=== PATIENT | male | born 1960 | race Caucasian/White ===

== ENCOUNTER 2020-02-19 14:03 | Observation (INO) ==
[2020-02-19] MEDS ORDERED: EPINEPHrine INJ 1 MG/ML AMP ONE (14:05)
[2020-02-19] MEDS ORDERED: EPINEPHRINE ADULT AUTO-INJECT 0.3 MG SYR IM ONE (14:05)
--- OUTSIDE RECORDS SUMMARY | 2020-02-19 14:07 | External Medical Summary | Continuity of Care Document ---
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 Krista Lyon Quantity: 1 Refills: 3 Simvastatin 10 MG Oral Tablet; [facility] Krista Franks Start: 21-Sep-2014 Refills: 0 Procedures Procedures not documented Immunizations Immunizations not documented Family History Mother Family history of Diabetes Mellitus (V18.0) Status: Active Father Family history of Parkinson Disease Status: Active Social History - Smoking Status Ex-smoker Plan of Treatment Planned Observations Planned Goals not documented Results No Known Results Results not documented
[2020-02-19] MEDS ORDERED: FAMOTIDINE 20MG/5ML IV PUSH IV ONE (14:12)
[2020-02-19] MEDS ORDERED: SODIUM CHLORIDE 0.9% 1000ML 1,000 ML IV ONE (14:13)
[2020-02-19] MEDS ORDERED: FAMOTIDINE 20MG IV PUSH 20 MG/5 ML SYR IV ONE (14:15)
[2020-02-19 14:27] LABS: iSTAT Creatinine 1.1 mg/dl (0.6-1.3); iSTAT Ionized Calcium 1.13 mmol/l (1.12-1.32); iSTAT Potassium 3.6 mmol/L (3.3-5.0)
--- NOTE | 2020-02-19 14:33 | XRay Report ---
XR chest 1V portable HISTORY: 59 years-old Male Chest Pain acute atypical chest pain COMPARISON: Chest radiograph 03/14/2007 TECHNIQUE: Portable AP view of the chest FINDINGS: Cardiomegaly. Mild right hemidiaphragmatic elevation. Ill-defined opacity of the left midlung is like ly secondary to summation density. No pneumothorax, pleural effusion, overt pulmonary edema or defini te airspace consolidation. Bones appear grossly intact. IMPRESSION: 1. Cardiomegaly. 2. Ill-defined left midlung opacity is likely secondary to summation density. This could be correlate d with PA and lateral views of the chest. ACT 112: Negative or not required by law. The above report was generated using voice recognition software. It may contain grammatical, syntax o r spelling errors. Electronically signed by: Robert Colindres M.D. 02/19/2020 2:31 PM
--- NOTE | 2020-02-19 14:39 | CT Scan Report ---
CT head/brain wo con CLINICAL HISTORY: 59 years-old Male with altered loc. Acutely altered mental status TECHNIQUE: Multiple axial CT images of the head were obtained without contrast. A dose lowering tech nique was utilized adhering to the principles of ALARA. COMPARISON: CT soft tissue neck of same day. FINDINGS: The study is mildly motion degraded. No acute intracranial hemorrhage, midline shift, intracranial ma ss, hydrocephalus, territorial ischemia or abnormal extra-axial collection. The calvarium is intact. The paranasal sinuses, mastoid air cells, and middle ear cavities are clear . IMPRESSION: No acute intracranial abnormality. ACT 112: Negative or not required by law. The above report was generated using voice recognition software. It may contain grammatical, syntax o r spelling errors. Electronically signed by: Robert Colindres M.D. 02/19/2020 2:38 PM
[2020-02-19 14:40] LABS: Hematocrit (blood only) 46.4 % (42-52); Hemoglobin 16.3 g/dL (14.0-18.0); Mean Corpuscular Hemoglobin 31.3 pg (25-34); Mean Corpuscular Hgb Conc 35.1 g/dL (32-36); Mean Corpuscular Volume 89.1 fL (80-100); Mean Platelet Volume 11.2 fL (7.4-10.4); Platelet Count 237 K/uL (130-400); RDW Coefficient of Variation 13.3 % (11.5-14.5); RDW Standard Deviation 43.2 fL (36.4-46.3); Red Blood Count 5.21 M/uL (4.7-6.1); White Blood Count 10.98 K/uL (4.8-10.8)
--- NOTE | 2020-02-19 14:46 | CT Scan Report ---
CT soft tissue neck wo con HISTORY: 59 years-old Male eval for airway compromise acutely altered mental status with possible na rrowing of the airway. COMPARISON: CT head of same day, ultrasound guided thyroid biopsy 09/28/2013 TECHNIQUE: Multiple axial CT images of the soft tissues of the neck were obtained without the use of IV contrast. A dose lowering technique was used consistent with the principals of LISA. FINDINGS: Study is mildly motion degraded. Limited exam without the use of IV contrast. No acute process of the imaged intracranial structures. The orbits are unremarkable. Streak artifact from dental amalgam sandi dware limits evaluation of the adjacent tissues. Calcifications of the bilateral palatine tonsils whi ch are symmetrically mildly enlarged. This results in mild narrowing of the oral pharyngeal airway. N o prevertebral soft tissue swelling or parapharyngeal fluid collection. Mild prominence of the lingua l tonsils. The glottis and subglottic airway appears unremarkable. Enlarged multinodular goiter. Calc ifications of the left thyroid lobe. There is mild narrowing of the airway at the level of the thyroi d. Parotid and submandibular glands are unremarkable. 4 mm right parotid calcification, image 168 ser ies 3 may be a calcification within the duct. No adenopathy. Lung apices are clear without pneumothor ax. Multilevel degenerative changes of the cervical spine. No acute fracture identified. Mild polypoid mu cosal thickening of the left maxillary sinus. Mastoid air cells are clear. IMPRESSION: 1. Mildly motion degraded exam. 2. Symmetric prominence of the bilateral palatine tonsils results in mild narrowing of the oral phary nx. 3. Multinodular goiter. 4. No adenopathy. ACT 112: Negative or not required by law. The above report was generated using voice recognition software. It may contain grammatical, syntax o r spelling errors. Electronically signed by: Robert Colindres M.D. 02/19/2020 2:45 PM
[2020-02-19 14:47] LABS: Alanine Aminotransferase 53 U/L (12-78); Albumin Level 4.2 gm/dl (3.4-5.0); Aspartate Aminotransferase 21 U/L (15-37); BUN Creatinine Ratio 12.8 (10-20); Blood Urea Nitrogen 13 mg/dl (7-18); Carbon Dioxide 25 mmol/L (21-32); Chloride 110 mmol/L (98-107); Creatinine Clr Calc Pharmacy 99.6 ml/min; Est GFR (Non-African American) 80.3; Glucose 112 mg/dl (70-99); Lipase 175 U/L (73-393); Potassium 3.5 mmol/L (3.5-5.1); Sodium 145 mmol/L (136-145)
[2020-02-19 14:52] LABS: Alkaline Phosphatase 92 U/L (45-117); Bilirubin,Total 0.4 mg/dl (0.2-1); Globulin 4.1 gm/dl (2.5-4.0); Partial Thromboplastin Ratio 0.9; Partial Thromboplastin Time 26.5 Seconds (21.0-31.0); Prothrombin Time 10.4 Seconds (9.0-12.0); Total Protein 8.3 gm/dl (6.4-8.2); Troponin I < 0.015 ng/ml (0-0.045)
[2020-02-19 15:27] LABS: Basophils # (auto) 0.06 K/uL (0-0.2); Basophils % (auto) 0.5 %; Eosinophils # (auto) 0.35 K/uL (0-0.5); Eosinophils % (auto) 3.2 %; Immature Granulocytes # (auto) 0.04 K/uL (0.00-0.02); Immature Granulocytes % (auto) 0.4 %; Lymphocytes # (auto) 5.25 K/uL (1.2-3.4); Lymphocytes % (auto) 47.8 %; Monocytes # (auto) 0.52 K/uL (0.11-0.59); Monocytes % (auto) 4.7 %; Neutrophils # (auto) 4.76 K/uL (1.4-6.5); Neutrophils % (auto) 43.4 %
--- NOTE | 2020-02-19 15:51 | Emergency Department Note ---
History of Present Illness General Chief complaint: Allergic Reaction Source: patient, family () and EMS Mode of arrival: EMS Limitations: altered mental status History of Present Illness Maximum Pain Intensity: 0 This patient comes in after apparently eating stung on the hand with a bee about 40 minutes prior to calling EMS. He initially did okay and went to continue work outside. The neighbor came and got the and said that he was not doing well he was shaky and acting in and out of it with minimal responsiveness. They called 911. His said he did not have any hives or facial swelling. EMS a rrived and they did give him IM epinephrine as well as IV Benadryl and IV steroids. Upon arrival the patient is somewhat confused he does answer some questions appropriately but slowly he has no focal deficits. He is unable to give any further history initially but say he did drink a bloody Zee for breakfast. Denies chest pain but has had some shortness of breath. No fall or trauma. No hives or rash. Home Medications Home Medications Medication Instructions Recorded Confirmed Type rosuvastatin 10 mg PO HS 02/19/20 02/19/20 History sildenafil 100 mg PO UD 02/19/20 02/19/20 History Allergies Allergy/AdvReac Type Severity Reaction Status Date / Time bee venom protein (honey bee) AdvReac Severe Anaphylaxis Unverified 02/19/20 14:33 Past Med/Surg History Social History Preferred Language: Mongolian Communication Ability: Effective Building Certifier Required: No Beliefs That Will Affect Care: None Current Living Situation: Spouse Other Information That Helps Us Care for You: No Feels Safe at Home: Yes Safety Concerns: Feels Safe At This Time Smoking Status: Never smoker Hx Alcohol Use: Yes Alcohol type: beer and hard liquor Hx Substance Use: No Immunizations: Past medical history: He has a history of bee allergies and was desensitized according to the . He does not carry an EpiPen No cardiac history or diabetes Social history: He drinks socially but not heavily according to his . He is employed. Review of Systems Unobtainable due to cognitive status (Initially unable to give due to current mental confusion but when he came around he denied further complaints and a total of 10 systems were reviewed and otherwise negative) Physical Exam Vital Signs Vital Signs - 24 hr 02/19/20 14:04 02/19/20 14:12 02/19/20 14:14 Temperature 36.7 C Temperature Source Oral Pulse Rate 103 H 104 H Pulse Rate [Apical] Pulse Rate from SpO2 Sensor 103 H Respiratory Rate 24 Blood Pressure 212/117 H 131/106 H Blood Pressure [Left Arm] Blood Pressure Mean 148 108 Blood Pressure Mean [Left Arm] Blood Pressure Position Sitting Pulse Oximetry 94 97 97 Oxygen Delivery Method Room Air Nasal Cannula Nasal Cannula Oxygen Flow Rate 2 2 Sepsis Recent Fever Within 48 Hours No Sepsis Action Taken by Nursing No Action Required 02/19/20 14:16 02/19/20 14:18 02/19/20 14:40 Temperature Temperature Source Pulse Rate 99 H 91 H Pulse Rate [Apical] Pulse Rate from SpO2 Sensor 99 H 89 Respiratory Rate 20 Blood Pressure 137/88 170/90 H Blood Pressure [Left Arm] Blood Pressure Mean 96 99 Blood Pressure Mean [Left Arm] Blood Pressure Position Pulse Oximetry 96 95 96 Oxygen Delivery Method Nasal Cannula Nasal Cannula Nasal Cannula Oxygen Flow Rate 2 2 2 Sepsis Recent Fever Within 48 Hours Sepsis Action Taken by Nursing 02/19/20 14:45 02/19/20 14:55 02/19/20 14:56 Temperature Temperature Source Pulse Rate 94 H 95 H Pulse Rate [Apical] Pulse Rate from SpO2 Sensor 95 H Respiratory Rate 22 21 Blood Pressure 151/84 H 149/94 H Blood Pressure [Left Arm] Blood Pressure Mean 101 122 Blood Pressure Mean [Left Arm] Blood Pressure Position Pulse Oximetry 94 93 94 Oxygen Delivery Method Room Air Room Air Oxygen Flow Rate Sepsis Recent Fever Within 48 Hours Sepsis Action Taken by Nursing 02/19/20 15:00 02/19/20 15:15 02/19/20 15:30 Temperature Temperature Source Pulse Rate 93 H 94 H 94 H Pulse Rate [Apical] Pulse Rate from SpO2 Sensor 94 H 94 H 94 H Respiratory Rate 18 19 17 Blood Pressure 142/94 H 140/90 137/81 Blood Pressure [Left Arm] Blood Pressure Mean 106 101 89 Blood Pressure Mean [Left Arm] Blood Pressure Position Pulse Oximetry 92 95 95 Oxygen Delivery Method Oxygen Flow Rate Sepsis Recent Fever Within 48 Hours Sepsis Action Taken by Nursing 02/19/20 15:45 02/19/20 16:00 02/19/20 16:15 Temperature Temperature Source Pulse Rate 95 H 95 H 95 H Pulse Rate [Apical] Pulse Rate from SpO2 Sensor 90 95 H 96 H Respiratory Rate 16 17 18 Blood Pressure 123/75 133/88 134/80 Blood Pressure [Left Arm] Blood Pressure Mean 84 99 96 Blood Pressure Mean [Left Arm] Blood Pressure Position Pulse Oximetry 94 94 95 Oxygen Delivery Method Oxygen Flow Rate Sepsis Recent Fever Within 48 Hours Sepsis Action Taken by Nursing 02/19/20 17:03 02/19/20 18:35 Temperature Temperature Source Pulse Rate Pulse Rate [Apical] 93 H 103 H Pulse Rate from SpO2 Sensor Respiratory Rate 18 18 Blood Pressure Blood Pressure [Left Arm] 140/86 135/85 Blood Pressure Mean Blood Pressure Mean [Left Arm] 104 101 Blood Pressure Position Pulse Oximetry 94 95 Oxygen Delivery Method Room Air Room Air Oxygen Flow Rate Sepsis Recent Fever Within 48 Hours Sepsis Action Taken by Nursing General: Well developed well nourished middle-age male who appears confused to answer some questions appropriately but slowly but in no acute distress, breathing comfortably on room air. Normal speech HEENT: Normal cephalic atraumatic. Pupils are equal round and reactive to light. Extraocular movements are intact. Oropharynx is pink with moist mucous membranes. No swelling of the mouth lips or tongue. The posterior oropharynx has maybe some's mild swelling of the uvula but primary looks very open Neck: Supple with a midline trachea. No meningeal signs or stiffness, no JVD or bruits. No Stridor. Chest: Clear to auscultation bilaterally. No wheezes or rhonchi. No increased work of breathing. Heart: Regular rate and rhythm without murmurs or gallops. Abdomen: Soft nontender, nondistended without rebound guarding or rigidity. Extremities: No cyanosis clubbing or edema. No calf tenderness or assymetry Spine/Back. Non tender to palpation. No CVA tenderness Skin: Good turgor without rashes. Neurologic exam: Cranial nerves two through 12 are intact. Motor and sensation are intact and symmetrical throughout. Course Administered Medications Discontinued Medications Epinephrine HCl (Epinephrine) Confirm Administered Dose 1 mg .ROUTE .[employer]-MED ONE Stop: 02/19/20 14:06 Last Admin: 02/19/20 14:59 Dose: Not Given Documented by: [id number] Epinephrine HCl (Epipen) Confirm Administered Dose 0.3 mg IM .STK-MED ONE Stop: 02/19/20 14:06 Last Admin: 02/19/20 15:00 Dose: Not Given Documented by: [id number] Famotidine (Pepcid 20mg Iv Push) Confirm Administered Dose 20 mg IV .STK-MED ONE Stop: 02/19/20 14:13 Last Admin: 02/19/20 14:13 Dose: 20 mg Documented by: [id number] Famotidine (Pepcid 20mg Iv Push) 20 mg in 5 mls @ 2.5 mls/min IV NOW ONE Stop: 02/19/20 14:16 Last Admin: 02/19/20 14:22 Dose: Not Given Documented by: [id number] Sodium Chloride (Nss 1000ml) 1,000 mls @ 999 mls/hr IV .Q1H1M ONE Stop: 02/19/20 15:13 Last Infusion: 02/19/20 15:38 Dose: 0 mls/hr Documented by: [id number] Admin: 02/19/20 14:22 Dose: 999 mls/hr Documented by: [id number] Critical Care Time Critical Care Time: Yes Total Critical Care Time: 40 Due to the patient's altered mental status, allergic reaction and concern for hemodynamic and airway compromise as well as extensive work-up and medications needed both prehospital and here, I have personally spent greater than 40 minutes of critical care time in the direct management of this patient. This includes bedside care, interpretation of diagnostic studies, and testing, discussion with consultants, patient, and family members, and other required patient management activities. This 40 minutes is in excess of all separately billable procedures. Medical Decision Making Differential Diagnosis Includes: Allergic reaction, arrhythmia, cardiac disease, central neurologic process/stroke, electrolyte or metabolic abnormality, anxiety Medical Records Attestation: I reviewed the patient's medical records. Home Medications Current Medication List: was personally reviewed by me Laboratory Data Attestation: I reviewed the patient's lab results. Result diagrams: 02/19/20 14:07 02/19/20 14:07 Lab Results 02/19/20 02/19/20 02/19/20 Range/Units 14: 14: 14: WBC 10.98 H (4.8-10.8) K/uL RBC 5.21 (4.7-6.1) M/uL Hgb 16.3 (14.0-18.0) g/dL POC Hgb (14.0-18.0) g/dl Hct 46.4 (42-52) % POC Hct (42-52) % MCV 89.1 (80-100) fL MCH 31.3 (25-34) pg MCHC 35.1 (32-36) g/dL RDW Std Deviation 43.2 (36.4-46.3) fL RDW Coeff of Ty 13.3 (11.5-14.5) % Plt Count 237 (130-400) K/uL MPV 11.2 H (7.4-10.4) fL Immature Gran % (Auto) 0.4 % Neut % (Auto) 43.4 % Lymph % (Auto) 47.8 % [place] % (Auto) 4.7 % Eos % (Auto) 3.2 % Baso % (Auto) 0.5 % Immature Gran # (Auto) 0.04 H (0.00-0.02) K/uL Neut # (Auto) 4.76 (1.4-6.5) K/uL Lymph # (Auto) 5.25 H (1.2-3.4) K/uL [place] # (Auto) 0.52 (0.11-0.59) K/uL Eos # (Auto) 0.35 (0-0.5) K/uL Baso # (Auto) 0.06 (0-0.2) K/uL PT 10.4 (9.0-12.0) Seconds INR 1.0 (0.9-1.1) APTT 26.5 (21.0-31.0) Seconds PTT Ratio 0.9 POC Sodium (135-144) mmol/L Sodium 145 (136-145) mmol/L POC Potassium (3.3-5.0) mmol/L Potassium 3.5 (3.5-5.1) mmol/L POC Chloride (101-112) mmol/L Chloride 110 H (98-107) mmol/L Carbon Dioxide 25 (21-32) mmol/L POC Total CO2 (24-31) mmol/L Anion Gap 10.0 (3-11) POC Anion Gap (16-25) mmol/L POC BUN (7-18) mg/dl BUN 13 (7-18) mg/dl Creatinine 1.03 (0.6-1.4) mg/dl POC Creatinine (0.6-1.3) mg/dl Est Cr Clr Drug Dosing 99.6 ml/min Est GFR ( Amer) 93.0 Est GFR (Non-Af Amer) 80.3 BUN/Creatinine Ratio 12.8 (10-20) Glucose 112 H (70-99) mg/dl POC Glucose (other) (70-99) mg/dl Calcium 9.0 (8.5-10.1) mg/dl POC Ioniz Calcium Carrie (1.12-1.32) mmol/l Magnesium (1.8-2.4) mg/dl Total Bilirubin 0.4 (0.2-1) mg/dl AST 21 (15-37) U/L ALT 53 (12-78) U/L Alkaline Phosphatase 92 (45-117) U/L Troponin I < 0.015 (0-0.045) ng/ml Total Protein 8.3 H (6.4-8.2) gm/dl Albumin 4.2 (3.4-5.0) gm/dl Globulin 4.1 H (2.5-4.0) gm/dl Albumin/Globulin Ratio 1.0 (0.9-2) Lipase 175 (73-393) U/L Ethyl Alcohol mg/dL (0-3) mg/dl 02/19/20 02/19/20 02/19/20 Range/Units 14:07 14:14 14:41 WBC (4.8-10.8) K/uL RBC (4.7-6.1) M/uL Hgb (14.0-18.0) g/dL POC Hgb 16.0 (14.0-18.0) g/dl Hct (42-52) % POC Hct 47 (42-52) % MCV (80-100) fL MCH (25-34) pg MCHC (32-36) g/dL RDW Std Deviation (36.4-46.3) fL RDW Coeff of Ty (11.5-14.5) % Plt Count (130-400) K/uL MPV (7.4-10.4) fL Immature Gran % (Auto) % Neut % (Auto) % Lymph % (Auto) % [place] % (Auto) % Eos % (Auto) % Baso % (Auto) % Immature Gran # (Auto) (0.00-0.02) K/uL Neut # (Auto) (1.4-6.5) K/uL Lymph # (Auto) (1.2-3.4) K/uL [place] # (Auto) (0.11-0.59) K/uL Eos # (Auto) (0-0.5) K/uL Baso # (Auto) (0-0.2) K/uL PT (9.0-12.0) Seconds INR (0.9-1.1) APTT (21.0-31.0) Seconds PTT Ratio POC Sodium 146 H (135-144) mmol/L Sodium (136-145) mmol/L POC Potassium 3.6 (3.3-5.0) mmol/L Potassium (3.5-5.1) mmol/L POC Chloride 109 (101-112) mmol/L Chloride (98-107) mmol/L Carbon Dioxide (21-32) mmol/L POC Total CO2 23 L (24-31) mmol/L Anion Gap (3-11) POC Anion Gap 19.0 (16-25) mmol/L POC BUN 14 (7-18) mg/dl BUN (7-18) mg/dl Creatinine (0.6-1.4) mg/dl POC Creatinine 1.1 (0.6-1.3) mg/dl Est Cr Clr Drug Dosing ml/min Est GFR ( Amer) Est GFR (Non-Af Amer) BUN/Creatinine Ratio (10-20) Glucose (70-99) mg/dl POC Glucose (other) 116 H (70-99) mg/dl Calcium (8.5-10.1) mg/dl POC Ioniz Calcium Carrie 1.13 (1.12-1.32) mmol/l Magnesium 1.9 (1.8-2.4) mg/dl Total Bilirubin (0.2-1) mg/dl AST (15-37) U/L ALT (12-78) U/L Alkaline Phosphatase (45-117) U/L Troponin I (0-0.045) ng/ml Total Protein (6.4-8.2) gm/dl Albumin (3.4-5.0) gm/dl Globulin (2.5-4.0) gm/dl Albumin/Globulin Ratio (0.9-2) Lipase (73-393) U/L Ethyl Alcohol mg/dL 135.8 H (0-3) mg/dl Imaging Data Radiologist's Impression: Head CT: Chest x-ray: ECG Data Attestation: I personally reviewed and interpreted this ECG as follows: Indication: + altered mental status Blood Pressure Blood Pressure Findings: Elevated blood pressure Blood Pressure Disposition: elevated BP felt to be situational MDM Narrative This patient comes in as described above. He was placed in room B1. The nurse was called for a doctor to see the patient emergently and I went in promptly. The patient seemed confused although had stable vital signs and is actually hypertensive. He had normal oxygen saturation and had no stridor or drooling or any evidence of significant airway compromise. he had no facial swelling or rash. He did seem very anxious. We placed him on oxygen and continuous director of partnerships as well as multiple blood testing was obtained. He did receive additional Pepcid IV. Due to his confusion, I did i-STAT labs and they were unremarkable his glucose is normal and I also did a CAT scan of his head and while he was over there we also did a CT of his neck. CAT scan of his head is unremarkable. there is no evidence of significant soft tissue swelling of the neck. His EKG shows no ischemic changes his QT does appear somewhat prolonged. Compared to his old EKG, he is tachycardic now although has received epinephrine. While he was here, his mental status improved back to baseline and he seemed very anxious at one point but now seems much better and says he feels well. He has no significant electrolyte or metabolic abnormality. His troponin is negative. I do think that he would benefit from observation. He was drinking alcohol his blood alcohol is mildly elevated at 132. I have consulted the hospitalist to see him for these measures. Impression & Plan Allergic reaction, Altered consciousness, Anxiety, Syncope and collapse, Al cohol use Discharge Plan Visit Data Chief Complaint: Allergic Reaction ED Provider: Natalio Daily Discharge Problem: Allergic reaction, Altered consciousness, Anxiety, Syncope and collapse, Alcohol use Discharge Instructions Interventions: ED Discharge Assessment Last Done: 02/19/20 18:37 Forms Stand Alone Forms: My [facility] [employer] Prescriptions Prescriptions: No Action sildenafil 100 mg tablet 100 mg PO UD RF: 0 rosuvastatin 10 mg tablet 10 mg PO HS RF: 0 Referrals Referrals: Caitlin Delacruz DO [Primary Care Provider] - Discharge Problem: Allergic reaction Qualifiers: Encounter type: initial encounter Qualified Code(s): T78.40XA - Allergy, unspecified, initial encounter
--- NOTE | 2020-02-19 18:46 | History & Physical Report ---
Date of Service February 19, 2020 Assessment & Plan (1) Altered consciousness: On arrival. Unclear exact etiology. Possible hypoxia/hypercapnia due to with panic attack in setting of restrictive obesity hypoventilation and alcohol use. No seizure -like activity seen but will monitor overnight for this Unclear if he had a true bee allergy, will not give further anti-histamines or steroids but monitor for recurrence. (2) Tachycardia: Sinus tach. Secondary to dehydration / epipen / stress. Monitor on telemetry Repeat EKG in AM with troponin due to ischemic changes noted. Currently without chest pain or shortness of breath. (3) Allergic reaction: Unclear if he ever had a true allergic reaction. Monitor on PCU with continuous pulse oximetry overnight Epipen/Benadryl prescribed PRN for allergica reaction, call MD if used / preferably before use unless emergency. (4) Anxiety: Monitor (5) Alcohol use: Positive on arrival due to Bloody Zee in AM Very low risk of withdrawal x3/week (6) JEREMY (obstructive sleep apnea): CPAP HS (7) Abnormal CXR: Ill-defined left midlung opacity ?secondary to summation density. Repeat CXR in AM with 2 view. (8) DVT prophylaxis: Age < 60 and mobile therefore will hold off chemical prophylaxis at this time No SCDs due to risk of falls if he becomes altered again Admission and Anticipated Discharge Date Admission Date: 02/19/2020 History of Present Illness Chief Complaint: Altered mental state, possible allergic reaction Primary Care Provider: Caitlin Delacruz DO Taz Duncan is a 59 year old male who presents to the ER via EMS due to altered mental state after a bee sting. 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 He denies getting any hives or feeling like his throat is swelling which occurred on a prior bee sting 9-10 years ago, since then however he had desensitizing treatment with sales and marketing coordinator. As per ER note and what patient has been told by his afterwards. After going back to work outside he started to become shaky and acting in and out of it with minimal responsiveness, therefore called 911. EMS gave epinephrine, IV Benadryl and IV steroids due to history but no facial swelling was noted. On arrival in the ER he was significantly confused and requiring restraints. Without intervention or benzodiazepines he recovered relatively quickly to his normal self but with amnesia of the events preceding. No seizure activity was noted in the ER as patient was talking throughout but just very agitated. No fall or trauma noted by family. Allergies Allergy/AdvReac Type Severity Reaction Status Date / Time bee venom protein (honey bee) AdvReac Severe Anaphylaxis Unverified 02/19/20 14:33 Home Medications Home Medications Medication Instructions Recorded Confirmed Type rosuvastatin 10 mg PO HS 02/19/20 02/19/20 History sildenafil 100 mg PO UD 02/19/20 02/19/20 History Past Med/Surg History Social History Preferred Language: Tristanian Communication Ability: Effective Quarantine Inspector Required: No Beliefs That Will Affect Care: None Current Living Situation: Spouse Other Information That Helps Us Care for You: No Feels Safe at Home: Yes Safety Concerns: Feels Safe At This Time Smoking Status: Never smoker Hx Alcohol Use: Yes Alcohol type: beer and hard liquor Hx Substance Use: No Review of Systems Review of Systems: All systems reviewed & are unremarkable except as noted in HPI & below Physical Exam Constitutional: WD/WN, vitals as above + obese Eyes: PERRL, conjunctivae normal, anicteric sclerae ENMT: external ear and nose normal, oropharynx normal Neck: trachea midline, no thyromegaly Respiratory: normal respiratory effort, lungs clear to auscultation Cardiovascular: RRR, no murmur, no edema Gastrointestinal (Abdomen): normal bowel sounds, soft, nontender, no hepatosplenomegaly Musculoskeletal: no cyanosis or clubbing, extremities motor strength 5/5 Skin: no rashes, warm and dry Neurologic: moves all extremities and awake; no focal motor deficits and not confused Speech / Cognition: normal speech Motor/Sensory: no tremor, no pronator drift and no sensory deficit Psychiatric: A+Ox3, euthymic affect Lymphatic: no cervical or axillary lymphadenopathy Results & Data Results & Data ([facility]) Vital Signs (Past 12 Hours) Vital Signs Temp Pulse Pulse Resp BP BP Pulse Ox 02/19/20 18:35 103 H 18 135/85 95 02/19/20 17:03 93 H 18 140/86 94 02/19/20 16:15 95 H 18 134/80 95 02/19/20 16:00 95 H 17 133/88 94 02/19/20 15:45 95 H 16 123/75 94 02/19/20 15:30 94 H 17 137/81 95 02/19/20 15:15 94 H 19 140/90 95 02/19/20 15:00 93 H 18 142/94 H 92 02/19/20 14:56 94 02/19/20 14:55 95 H 21 149/94 H 93 02/19/20 14:45 94 H 22 151/84 H 94 02/19/20 14:40 91 H 170/90 H 96 02/19/20 14:18 95 02/19/20 14:16 99 H 20 137/88 96 02/19/20 14:14 97 02/19/20 14:12 104 H 131/106 H 97 02/19/20 14:04 36.7 C 103 H 24 212/117 H 94 Diagnostic Findings XR chest 1V portable IMPRESSION: 1. Cardiomegaly. 2. Ill-defined left midlung opacity is likely secondary to summation density. This could be correlated with PA and lateral views of the chest. CT soft tissue neck wo con IMPRESSION: 1. Mildly motion degraded exam. 2. Symmetric prominence of the bilateral palatine tonsils results in mild narrowing of the oral pharynx. 3. Multinodular goiter. 4. No adenopathy. CT head/brain wo con IMPRESSION: No acute intracranial abnormality. ECG Indication: altered mental status Rate (beats per minute): 106 Rhythm: sinus tachycardia Findings: + other (T wave flattening) and + ST depression (Anterior, mild) Comparison ECG Date: from (03/15/2007) Change: the following changes noted (No ST elevated in lateral leads, T waves now more flattened, borderline ST depression in anterior leads) Code Status & VTE Plan Code Status Full VTE Prophylaxis Plan VTE Prophylaxis will be ordered: No PG Care Time/CCT Total # of Minutes Spent Total Time Spent with Patient: Total time spent is greater than 50% in coordination of care (as documented) at patient's floor/unit and/or counseling patient: Coding Level of Care Code 59914 OBS Care - Level 3 Diagnoses Altered consciousness R40.4 Tachycardia R00.0 Allergic reaction T78.40XA Encounter type: initial encounter Anxiety F41.9 Alcohol use Z72.89 JEREMY (obstructive sleep apnea) G47.33 Abnormal CXR R93.89 DVT prophylaxis Z29.9 (1) Allergic reaction Encounter type: initial encounter Qualified Code(s): T78.40XA - Allergy, unspecified, initial encounter
[2020-02-19] MEDS ORDERED: EPINEPHRINE ADULT AUTO-INJECT 0.3 MG SYR IM PRN (20:06)
[2020-02-19] MEDS ORDERED: LACTATED RINGER'S 1,000 ML IV SCH (20:45)
[2020-02-19] MEDS ORDERED: ROSUVASTATIN CALCIUM 10 MG TAB PO SCH (21:00)
[2020-02-20 07:30] LABS: Basophils # (auto) 0.01 K/uL (0-0.2); Basophils % (auto) 0.1 %; Hematocrit (blood only) 46.6 % (42-52); Hemoglobin 15.9 g/dL (14.0-18.0); Immature Granulocytes # (auto) 0.05 K/uL (0.00-0.02); Immature Granulocytes % (auto) 0.3 %; Lymphocytes # (auto) 2.32 K/uL (1.2-3.4); Lymphocytes % (auto) 14.4 %; Mean Corpuscular Hemoglobin 30.1 pg (25-34); Mean Corpuscular Hgb Conc 34.1 g/dL (32-36); Mean Corpuscular Volume 88.1 fL (80-100); Mean Platelet Volume 11.2 fL (7.4-10.4); Monocytes # (auto) 0.74 K/uL (0.11-0.59); Monocytes % (auto) 4.6 %; Neutrophils # (auto) 13.02 K/uL (1.4-6.5); Neutrophils % (auto) 80.6 %; Platelet Count 241 K/uL (130-400); RDW Coefficient of Variation 13.3 % (11.5-14.5); RDW Standard Deviation 42.9 fL (36.4-46.3); Red Blood Count 5.29 M/uL (4.7-6.1); White Blood Count 16.14 K/uL (4.8-10.8)
[2020-02-20 07:55] LABS: BUN Creatinine Ratio 17.3 (10-20); Blood Urea Nitrogen 15 mg/dl (7-18); Calcium 8.9 mg/dl (8.5-10.1); Carbon Dioxide 23 mmol/L (21-32); Chloride 107 mmol/L (98-107); Creatinine Clr Calc Pharmacy 117.4 ml/min; Est GFR (African American) 111.6; Est GFR (Non-African American) 96.3; Glucose 175 mg/dl (70-99); Potassium 3.8 mmol/L (3.5-5.1); Sodium 139 mmol/L (136-145)
[2020-02-20 08:00] LABS: Troponin I < 0.015 ng/ml (0-0.045)
--- NOTE | 2020-02-20 08:44 | Hospitalist Progress Note ---
Date of Service February 20, 2020 Assessment & Plan (1) Altered consciousness: On arrival. Unclear exact etiology. Possible hypoxia/hypercapnia due to with panic attack in setting of restrictive obesity hypoventilation and alcohol use. No seixure -like activity seen but will monitor overnight for this Unclear if he had a true bee allergy, will not give further anti-histamines or steroids but monitor for recurrence. (2) Tachycardia: Sinus tach. Secondary to dehydration / epipen / stress. Monitor on telemetry Repeat EKG in AM with troponin due to ischemic changes noted. Currently without (3) Allergic reaction: Unclear if he ever had a true allergic reaction. Monitor on PCU with continuous pulse oximetry overnight Epipen/Benadryl prescribed PRN for allergica reaction, call MD if used / preferably before use unless emergency. (4) Anxiety: (5) Alcohol use: Positive on arrival due to Blood[place]ee in AM Very low risk of withdrawal x3/week (6) JEREMY (obstructive sleep apnea): CPAP HS (7) Abnormal CXR: Ill-defined left midlung opacity ?secondary to summation density. Repeat CXR in AM with 2 view. Admission and Anticipated Discharge Date Admission Date: February 19, 2020 Results & Data Results & Data ([facility]) Vital Signs (Past 12 Hours) Vital Signs Temp Pulse Pulse Resp BP BP Pulse Ox 02/20/20 07:54 74 02/20/20 07:48 98.1 F 83 20 156/95 H 95 02/20/20 04:01 97.9 F 91 H 17 129/81 94 02/20/20 00:12 98.6 F 104 H 18 151/91 H 92 PG Care Time/CCT Total # of Minutes Spent Total Time Spent with Patient: Total time spent is greater than 50% in c oordination of care (as documented) at patient's floor/unit and/or counseling patient: Coding Diagnoses Altered consciousness R40.4 Tachycardia R00.0 Allergic reaction T78.40XA Encounter type: initial encounter Anxiety F41.9 Alcohol use Z72.89 JEREMY (obstructive sleep apnea) G47.33 Abnormal CXR R93.89 (1) Allergic reaction Encounter type: initial encounter Qualified Code(s): T78.40XA - Allergy, unspecified, initial encounter
--- NOTE | 2020-02-20 12:28 | Electrocardiogram Report ---
Test Reason : Blood Pressure : / mmHG Vent. Rate : 106 BPM Atrial Rate : 106 BPM P-R Int : 188 ms QRS Dur : 106 ms QT Int : 356 ms P-R-T Axes : 044 008 -32 degrees QTc Int : 472 ms Sinus tachycardia Nonspecific ST and T wave abnormality Abnormal ECG When compared with ECG of 15-MAR-2007 06:29, Vent. rate has increased BY [address] now depressed in Anterior leads ST no longer elevated in Lateral leads Nonspecific T wave abnormality now evident in Inferior leads Nonspecific T wave abnormality now evident in Anterolateral leads Confirmed by Rey Aquino ([id number]) on 02/20/2020 12:27:49 PM Referred By: REFERRED SELF Confirmed By:Zachery Aquino
--- NOTE | 2020-02-20 18:12 | Discharge Summary ---
Date of Service February 20, 2020 Admission HPI Per Admitting Provider Taz Duncan is a 59 year old male who presents to the ER via EMS due to altered mental state after a bee sting. 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 He denies getting any hives or feeling like his throat is swelling which occurred on a prior bee sting 9-10 years ago, since then however he had desensitizing treatment with chemist biological. As per ER note and what patient has been told by his afterwards. After going back to work outside he started to become shaky and acting in and out of it with minimal responsiveness, therefore called 911. EMS gave epinephrine, IV Benadryl and IV steroids due to history but no facial swelling was noted. On arrival in the ER he was significantly confused and requiring restraints. Without intervention or benzodiazepines he recovered relatively quickly to his normal self but with amnesia of the events preceding. No seizure activity was noted in the ER as patient was talking throughout but just very agitated. No fall or trauma noted by family. Principal Diagnosis Allergic reaction to bee sting Alcohol use Discharge Exam The patient appeared well Vital signs as documented. Lungs are clear to auscultation and appear unlabored Cardiac exam, Rhythm is regular.. No murmurs, rubs or gallops. Abdominal exam reveals normal bowel sounds, soft non tender, no masses Extremities are nonedematous and both pedal pulses are normal. Neurologic exam is alert and oriented, no focal loss of strength or sensation Skin is without bruises or rashes Psychologically is without concerns for anxiety or depression Discharge Data Allergies Allergy/AdvReac Type Severity Reaction Status Date / Time bee venom protein (honey bee) AdvReac Severe Anaphylaxis Unverified 02/19/20 14:33 Ordered Studies 02/19/20 14:13 CT soft tissue neck wo con Stat 02/19/20 14:15 CT head/brain wo con Stat Hospital Course (1) Altered consciousness: Resolved Possible hypoxia/hypercapnia due to with panic attack in setting of restrictive obesity hypoventilation and alcohol use. No seizure -like activity seen but will monitor overnight for this Patient is had previously been desensitized to bees and is not a sting from was 10 years (2) Tachycardia: Resolved sinus tach. Secondary to dehydration / epipen / stress. Monitor on telemetry . Currently continues without chest pain or shortness of breath. (3) Allergic reaction: Gave him instructions on Benadryl and Pepcid use and given EpiPen prescription on discharge (4) Anxiety: Monitor (5) Alcohol use: Counseled on alcohol use (6) JEREMY (obstructive sleep apnea): CPAP HS (7) Abnormal CXR: Recommend repeat chest x-ray as an outpatient Total Time Total Time Spent Total Time Spent (In Minutes): It required greater than 30 minutes to prepare this patient for discharge Discharge Plan Discharge Items Patient Disposition: Home - Self-Care Reason For Visit: ALLERGIC REACTION, AMS Discharge Diagnosis: allergic reaction Activity: Resume your previous activity Non-emergency contact: Primary Care Provider Call non-emergency contact if: you have any medication questions and your symptoms worsen Follow-up/Referrals: Caitlin Delacruz, [Primary Care Provider] - Diet: Regular Addtl Attending Provider Instructions: please use caution to not have a bee bite again. If you unfortunately have a bite again, please take 50 mg benadryl and 20mg of pepcid by mouth, if you feel worse or your symptoms do not improve, take an Epipen injection and seek medical attention It is always good that if you think you need an epi pen use it. But afterward seek a medical evaluation Pending Studies at Discharge: No Stand-Alone Forms: My [facility], Smoking Cessation Medications and DC Order Prescriptions: New epinephrine 0.3 mg/0.3 mL auto-injector 0.3 mg IM Q3H PRN (Reason: anaphylaxis) Qty: 2 RF: 6 Continued sildenafil 100 mg tablet 100 mg PO UD RF: 0 rosuvastatin 10 mg tablet 10 mg PO HS RF: 0 Discharge Orders: Discharge Order (Routine); Ordered 02/20/20 Ordered By: Heri Chakraborty/Other Patient Handouts: Using an Epinephrine Autoinjector, ED Anaphylaxis General Admission Data Admit Date/Time: 02/19/20 18:20 Attending Provider: Heri Mares Admit Provider: Sotero Lo Primary Care Provider: Caitlin Delacruz Other Interventions: Discharge Summary Assessment (RN) Last Done: 02/20/20 12:42 DC Date/Time DO NOT enter until pt leaves facility: 02/20/20 13:13 Coding Level of Care Code D/C Day Management >30 mins Diagnoses Altered consciousness R40.4 Tachycardia R00.0 Allergic reaction T78.40XA Encounter type: initial encounter Anxiety F41.9 Alcohol use Z72.89 JEREMY (obstructive sleep apnea) G47.33 Abnormal CXR R93.89
== END 2020-02-20 13:13 | disposition home or self-care (01) ==
LOC: 2S 14:03 → ED 14:03 → SUATTDRO 18:20 → 2S 18:37

== ENCOUNTER 2020-07-29 13:00 | Inpatient (IN) ==
--- NOTE | 2020-07-29 13:26 | Emergency Department Note ---
Impression & Plan Breathlessness, COVID-19, Hypoxia ED Provider Note Provider: Sean Huynh MD DATE OF SERVICE:07/29/2020 CHIEF COMPLAINT: Chest pain, shortness of breath, fevers HISTORY OF PRESENT ILLNESS: Patient is a 60-year-old gentleman history of hyperlipidemia presenting here today for concerns for approximately 5 days of shortness of breath, fever, and some chest discomfort with decreased appetite. Patient states his tested positive just about a week ago and he came down with symptoms this past Thursday. Has been having fever since that time he is lying Advil and Tylenol home as well some Delsym for symptom control. States his fever has been fluctuating and was 103.7 this morning and thus his recommended he come here for evaluation. She has been doing fairly well at home per his report. Patient himself states some general fatigue decreased intake and some mild chest discomfort but predominantly shortness of breath and ability to catch his breath. Patient denies any trauma. Patient last took Tylenol at 8 this morning and Advil at 1030. Patient states has been monitoring his pulse ox at home and was about 90% this morning on room air. Called the [facility] nurses line who recommended he come in here for evaluation. Has been on an antibiotic per his primary doctors office over the past 5 days. Patient does states he had midsentence dyspnea yesterday. REVIEW OF SYSTEMS: A total of 10 review of systems was obtained and negative except as stated above in the HPI. PAST MEDICAL HISTORY: As noted above MEDICATIONS: Reviewed home medication list SOCIAL HISTORY: Distant former smoker, lives at home with PHYSICAL EXAM: GENERAL: alert and oriented sitting on the stretcher with mask in place appears somewhat fatigued Head: normocephalic and atraumatic EYES: No injection, discharge or icterus. NECK: Trachea midline. Supple. LUNGS: Airway patent. No retractions. Slight tachypnea. HEART: Regular rate and rhythm. ABDOMEN: Soft and non-tender, without guarding or rebound. SKIN: Acyanotic, slightly diaphoretic. No significant rash. EXTREMITIES: Without swelling, tenderness or deformity NEUROLOGICAL: No focal deficits. No aphasia. No facial droop or slurred speech. EK beats per normal sinus rhythm. No PVC or PAC. No acute ST segment elevation or depression. Normal axis. CONTINUOUS CARDIAC MONITORING: was ordered and showed a heart rate of 102 bpm in sinus tachycardia Patient's laboratory studies and imaging reviewed. Differential includes Viral syndrome, otitis, pharyngitis, pneumonia, influenza, meningitis, urinary tract infection, sepsis, COVID, ACS, pancreatitis as well as other pathologies. IMPRESSION/MEDICAL DECISION MAKING: Patient presents with predominately shortness of breath decreased intake fevers and some slight chest discomfort. Significant exposure to is positive for Covid and he likely has it. We will send test today for coronavirus. X-ray be obtained to those basic laboratory studies D-dimer to help evaluate for other overlying superimposed pathologies. Given some IV fluid here. Will give some Tylenol and appropriately spaced from last dose. Pulse ox when discussing in the room initially with the patient is 90 to 93%. Laboratory studies with mild leukopenia consistent with coronavirus. CRP is mildly elevated. Coronavirus test is positive today. Clearly fits the clinical picture. Troponin undetectable and have low suspicion for acute ACS. Dimer is positive and CT of the chest was completed. Diffuse inflammatory changes likely consistent with viral pneumonia are noted while a suboptimal study no evidence of acute PE. Question some lymphadenopathy and pulmonary nodule on the CT scan. Patient given some Tylenol here for redosing but was later noted to be hypoxic in the mid 80s on room air. Given this discussed with the patient recommendation for further care here in the hospital with hypoxia. Given a dose of dexamethasone. Patient was agreeable with this. Hospitalist to be contacted. DIAGNOSIS: Shortness breath, chest pain, fevers, COVID-19 DISPOSITION: Hospitalist will evaluate Patient was agreeable with this plan. Past Med/Surg History Social History Smoking Status: Former smoker Hx Alcohol Use: Yes Alcohol type: beer and hard liquor Hx Substance Use: No Preferred Language: Divehi Communication Ability: Effective [employer] Required: No Beliefs That Will Affect Care: None Current Living Situation: Spouse Feels Safe at Home: Yes Assistive Devices: None Allergies Allergies Allergy/AdvReac Type Severity Reaction Status Date / Time No Known Drug Allergies Allergy Verified 07/29/20 14:23 bee venom protein (honey bee) AdvReac Severe Anaphylaxis Unverified 07/29/20 14:23 Home Meds Home Medications Medication Instructions Recorded Confirmed rosuvastatin 10 mg PO HS 02/19/20 07/29/20 sildenafil 100 mg PO UD 02/19/20 07/29/20 acetaminophen [Tylenol Extra 1,000 mg PO Q6H PRN 07/29/20 07/29/20 Strength] ibuprofen [Advil] 200 mg PO Q6H PRN 07/29/20 07/29/20 meloxicam 15 mg PO BID 07/29/20 07/29/20 Previous Rx's Medication Instructions Recorded epinephrine 0.3 mg IM Q3H PRN #2 ea 02/20/20 Results & Data (ED) Vital Signs Vital Signs - 24 hr 07/29/20 13:08 07/29/20 13:30 07/29/20 14:00 Temperature 37.5 C Temperature Source Oral Pulse Rate 95 H 92 H Pulse Rate from SpO2 Sensor 92 H 93 H Respiratory Rate 26 H 19 Respiratory Depth Shallow Respiratory Pattern Tachypnea Blood Pressure 153/91 H Blood Pressure Mean 111 Blood Pressure Position Sitting Pulse Oximetry 93 90 93 Oxygen Delivery Method Room Air Room Air Room Air Oxygen Flow Rate Sepsis Recent Fever Within 48 Hours Yes Sepsis New/Unexplained Change in Mental Status No Sepsis Action Taken by Nursing No Action Required 07/29/20 14:30 07/29/20 14:34 07/29/20 15:00 Temperature Temperature Source Pulse Rate 87 93 H Pulse Rate from SpO2 Sensor 93 H 97 H Respiratory Rate 26 H 20 24 Respiratory Depth Respiratory Pattern Blood Pressure 134/82 155/91 H Blood Pressure Mean 94 106 Blood Pressure Position Pulse Oximetry 93 91 96 Oxygen Delivery Method Room Air Room Air Nasal Cannula Oxygen Flow Rate 2 Sepsis Recent Fever Within 48 Hours Sepsis New/Unexplained Change in Mental Status Sepsis Action Taken by Nursing 07/29/20 15:01 07/29/20 16:05 07/29/20 16:11 Temperature Temperature Source Pulse Rate 109 H Pulse Rate from SpO2 Sensor 101 H 119 H 108 H Respiratory Rate 24 29 H Respiratory Depth Respiratory Pattern Blood Pressure 150/83 H Blood Pressure Mean 102 Blood Pressure Position Pulse Oximetry 96 87 L 95 Oxygen Delivery Method Nasal Cannula Room Air Oxygen Flow Rate 2 Sepsis Recent Fever Within 48 Hours Sepsis New/Unexplained Change in Mental Status Sepsis Action Taken by Nursing 07/29/20 16:12 07/29/20 16:23 07/29/20 16:30 Temperature Temperature Source Pulse Rate 106 H 107 H Pulse Rate from SpO2 Sensor 106 H 107 H Respiratory Rate 27 H 29 H Respiratory Depth Respiratory Pattern Blood Pressure 153/81 H Blood Pressure Mean 106 Blood Pressure Position Pulse Oximetry 94 85 L 96 Oxygen Delivery Method Nasal Cannula Room Air Nasal Cannula Oxygen Flow Rate 4 4 Sepsis Recent Fever Within 48 Hours Sepsis New/Unexplained Change in Mental Status Sepsis Action Taken by Nursing 07/29/20 17:00 07/29/20 17:30 Temperature Temperature Source Pulse Rate 107 H 108 H Pulse Rate from SpO2 Sensor 107 H 108 H Respiratory Rate 23 12 Respiratory Depth Respiratory Pattern Blood Pressure 155/78 H 133/82 Blood Pressure Mean 103 96 Blood Pressure Position Pulse Oximetry 97 96 Oxygen Delivery Method Nasal Cannula Oxygen Flow Rate 4 Sepsis Recent Fever Within 48 Hours Sepsis New/Unexplained Change in Mental Status Sepsis Action Taken by Nursing Laboratory Data Result diagrams: 07/29/20 14:34 07/29/20 14:34 Lab Results 07/29/20 07/29/20 07/29/20 Range/Units 14:34 14:34 14:34 WBC 4.35 L (4.8-10.8) K/uL RBC 4.87 (4.7-6.1) M/uL Hgb 14.7 (14.0-18.0) g/dL Hct 42.7 (42-52) % MCV 87.7 (80-100) fL MCH 30.2 (25-34) pg MCHC 34.4 (32-36) g/dL RDW Std Deviation 42.1 (36.4-46.3) fL RDW Coeff of Ty 13.1 (11.5-14.5) % Plt Count 144 (130-400) K/uL MPV 10.9 H (7.4-10.4) fL Immature Gran % (Auto) 0.2 % Neut % (Auto) 61.9 % Lymph % (Auto) 32.4 % [place] % (Auto) 5.3 % Eos % (Auto) 0.0 % Baso % (Auto) 0.2 % Neut # (Auto) 2.69 (1.4-6.5) K/uL Lymph # (Auto) 1.41 (1.2-3.4) K/uL [place] # (Auto) 0.23 (0.11-0.59) K/uL Eos # (Auto) 0.00 (0-0.5) K/uL Baso # (Auto) 0.01 (0-0.2) K/uL Immature Gran # (Auto) 0.01 (0.00-0.02) K/uL PT 11.4 (9.0-12.0) Seconds INR 1.1 (0.9-1.1) D-Dimer 1410 H* (0-500) ug/L FEU Sodium 132 L (136-145) mmol/L Potassium 3.8 (3.5-5.1) mmol/L Chloride 96 L (98-107) mmol/L Carbon Dioxide 28 (21-32) mmol/L Anion Gap 8.0 (3-11) BUN 10 (7-18) mg/dl Creatinine 0.98 (0.6-1.4) mg/dl Est Cr Clr Drug Dosing 104.0 ml/min Est GFR ( Amer) 98.1 Est GFR (Non-Af Amer) 84.6 BUN/Creatinine Ratio 10.3 (10-20) Glucose 138 H (70-99) mg/dl Lactate (0.4-2.0) mmol/L Calcium 8.3 L (8.5-10.1) mg/dl Total Bilirubin 0.6 (0.2-1) mg/dl AST 61 H (15-37) U/L ALT 54 (12-78) U/L Alkaline Phosphatase 60 (45-117) U/L Troponin I < 0.015 (0-0.045) ng/ml C-Reactive Protein 11.20 H (0-0.29) mg/dl Total Protein 7.5 (6.4-8.2) gm/dl Albumin 3.4 (3.4-5.0) gm/dl Globulin 4.1 H (2.5-4.0) gm/dl Albumin/Globulin Ratio 0.8 L (0.9-2) Lipase 236 (73-393) U/L COVID-19 Eval Order SARS-CoV-2, RNA, NAAT (NEGATIVE) 07/29/20 07/29/20 07/29/20 Range/Units 14:34 14:40 14:40 WBC (4.8-10.8) K/uL RBC (4.7-6.1) M/uL Hgb (14.0-18.0) g/dL Hct (42-52) % MCV (80-100) fL MCH (25-34) pg MCHC (32-36) g/dL RDW Std Deviation (36.4-46.3) fL RDW Coeff of Ty (11.5-14.5) % Plt Count (130-400) K/uL MPV (7.4-10.4) fL Immature Gran % (Auto) % Neut % (Auto) % Lymph % (Auto) % [place] % (Auto) % Eos % (Auto) % Baso % (Auto) % Neut # (Auto) (1.4-6.5) K/uL Lymph # (Auto) (1.2-3.4) K/uL [place] # (Auto) (0.11-0.59) K/uL Eos # (Auto) (0-0.5) K/uL Baso # (Auto) (0-0.2) K/uL Immature Gran # (Auto) (0.00-0.02) K/uL PT (9.0-12.0) Seconds INR (0.9-1.1) D-Dimer (0-500) ug/L FEU Sodium (136-145) mmol/L Potassium (3.5-5.1) mmol/L Chloride (98-107) mmol/L Carbon Dioxide (21-32) mmol/L Anion Gap (3-11) BUN (7-18) mg/dl Creatinine (0.6-1.4) mg/dl Est Cr Clr Drug Dosing ml/min Est GFR ( Amer) Est GFR (Non-Af Amer) BUN/Creatinine Ratio (10-20) Glucose (70-99) mg/dl Lactate 1.5 (0.4-2.0) mmol/L Calcium (8.5-10.1) mg/dl Total Bilirubin (0.2-1) mg/dl AST (15-37) U/L ALT (12-78) U/L Alkaline Phosphatase (45-117) U/L Troponin I (0-0.045) ng/ml C-Reactive Protein (0-0.29) mg/dl Total Protein (6.4-8.2) gm/dl Albumin (3.4-5.0) gm/dl Globulin (2.5-4.0) gm/dl Albumin/Globulin Ratio (0.9-2) Lipase (73-393) U/L COVID-19 Eval [facility] SARS-CoV-2, RNA, NAAT POSITIVE A* (NEGATIVE) Administered Medications Discontinued Medications Acetaminophen (Acetaminophen 500 Mg Tab) 1,000 mg PO NOW STA Stop: 07/29/20 15:36 Last Admin: 07/29/20 16:14 Dose: 1,000 mg Documented by: [id number] Dexamethasone (Dexamethasone Sod Inj 10 Mg/Ml Vial) 6 mg IV NOW ONE Stop: 07/29/20 16:34 Last Admin: 07/29/20 17:18 Dose: 6 mg Documented by: [id number] Hydrocodone Bit/Homatropine Methylb (Hydrocodone/Homatropine Syrup 5mg/1.5mg 5ml Udp) 5 ml PO NOW STA Stop: 07/29/20 17:09 Last Admin: 07/29/20 17:18 Dose: 5 ml Documented by: [id number] Sodium Chloride (Nss 1000ml) 1,000 mls @ 999 mls/hr IV .Q1H1M JERSON Stop: 07/29/20 14:30 Last Infusion: 07/29/20 15:46 Dose: 0 mls/hr Documented by: [id number] Admin: 07/29/20 14:36 Dose: 999 mls/hr Documented by: [id number] Ioversol (Optiray 320 125ml) 119 ml IV ONCE ONE Stop: 07/29/20 16:01 Last Admin: 07/29/20 16:01 Dose: 119 ml Documented by: [id number] Discharge Plan Visit Data Chief Complaint: Fever Stated Complaint: FEVER,SOB,CHEST TIGHTNESS,REFFERED [facility] ED Provider: Sean Huynh Discharge Problem: Breathlessness, COVID-19, Hypoxia Patient Disposition: Admitted As Inpatient Condition: Fair Forms Stand Alone Forms: My [facility] Prescriptions Prescriptions: No Action sildenafil 100 mg tablet 100 mg PO UD RF: 0 rosuvastatin 10 mg tablet 10 mg PO HS RF: 0 epinephrine 0.3 mg/0.3 mL auto-injector 0.3 mg IM Q3H PRN (Reason: anaphylaxis) Qty: 2 RF: 6 meloxicam 15 mg tablet 15 mg PO BID RF: 0 acetaminophen [Tylenol Extra Strength] 500 mg Tablet 1,000 mg PO Q6H PRN (Reason: Pain) RF: 0 ibuprofen [Advil] 200 mg Tablet 200 mg PO Q6H PRN (Reason: Pain) RF: 0 Referrals Referrals: Caitlin Delacruz DO [Primary Care Provider] -
[2020-07-29] MEDS ORDERED: SODIUM CHLORIDE 0.9% 1000ML 1,000 ML IV SCH (13:30)
--- NOTE | 2020-07-29 13:52 | XRay Report ---
XR chest 1V portable CLINICAL HISTORY: Shortness of breath. Suspected Covid. COMPARISON STUDY: 02/19/2020 FINDINGS: The heart is mildly enlarged. There are multifocal bilateral pulmonary airspace opacities m ost pronounced within the right upper lobe. The findings are consistent with a multifocal pneumonia. Clinical and radiographic follow-up is recommended. There is no failure. There are no significant ple ural effusions.[ IMPRESSION: Bilateral multifocal airspace opacities consistent with a multifocal pneumonia. Clinical and radiographic follow-up is recommended. ACT 112: Negative or not required by law. Electronically signed by: Justen Farnklin M.D. 07/29/2020 1:51 PM
[2020-07-29 14:44] LABS: Basophils # (auto) 0.01 K/uL (0-0.2); Basophils % (auto) 0.2 %; Hematocrit (blood only) 42.7 % (42-52); Hemoglobin 14.7 g/dL (14.0-18.0); Immature Granulocytes # (auto) 0.01 K/uL (0.00-0.02); Immature Granulocytes % (auto) 0.2 %; Lymphocytes # (auto) 1.41 K/uL (1.2-3.4); Lymphocytes % (auto) 32.4 %; Mean Corpuscular Hemoglobin 30.2 pg (25-34); Mean Corpuscular Hgb Conc 34.4 g/dL (32-36); Mean Corpuscular Volume 87.7 fL (80-100); Mean Platelet Volume 10.9 fL (7.4-10.4); Monocytes # (auto) 0.23 K/uL (0.11-0.59); Monocytes % (auto) 5.3 %; Neutrophils # (auto) 2.69 K/uL (1.4-6.5); Neutrophils % (auto) 61.9 %; Platelet Count 144 K/uL (130-400); RDW Coefficient of Variation 13.1 % (11.5-14.5); RDW Standard Deviation 42.1 fL (36.4-46.3); Red Blood Count 4.87 M/uL (4.7-6.1); White Blood Count 4.35 K/uL (4.8-10.8)
[2020-07-29 14:56] LABS: INR 1.1 (0.9-1.1); Prothrombin Time 11.4 Seconds (9.0-12.0)
[2020-07-29 15:01] LABS: Alanine Aminotransferase 54 U/L (12-78); Albumin Level 3.4 gm/dl (3.4-5.0); Aspartate Aminotransferase 61 U/L (15-37); BUN Creatinine Ratio 10.3 (10-20); Blood Urea Nitrogen 10 mg/dl (7-18); Calcium 8.3 mg/dl (8.5-10.1); Carbon Dioxide 28 mmol/L (21-32); Chloride 96 mmol/L (98-107); Est GFR (African American) 98.1; Est GFR (Non-African American) 84.6; Glucose 138 mg/dl (70-99); Lipase 236 U/L (73-393); Potassium 3.8 mmol/L (3.5-5.1); Sodium 132 mmol/L (136-145)
[2020-07-29 15:05] LABS: Albumin Globulin Ratio 0.8 (0.9-2); Alkaline Phosphatase 60 U/L (45-117); Bilirubin,Total 0.6 mg/dl (0.2-1); Globulin 4.1 gm/dl (2.5-4.0); Total Protein 7.5 gm/dl (6.4-8.2); Troponin I < 0.015 ng/ml (0-0.045)
[2020-07-29 15:12] LABS: D Dimer 1410 ug/L FEU (0-500)
[2020-07-29] MEDS ORDERED: ACETAMINOPHEN 500 MG TAB PO STA (15:35)
[2020-07-29] MEDS ORDERED: OPTIRAY 320 125ml IV ONE (16:00)
--- NOTE | 2020-07-29 16:13 | CT Scan Report ---
CT ANGIOGRAM OF THE CHEST CLINICAL HISTORY: Chest pain, shortness of breath, positive d-dimer, Covid positive. COMPARISON STUDY: Chest x-ray dated 07/29/2020 TECHNIQUE: Following the IV administration of 119 mL of Optiray-320, CT angiogram of the thorax was p erformed from the thoracic inlet to the lung bases utilizing the pulmonary embolus protocol. Images a re reviewed in the axial, sagittal, and coronal planes. IV contrast was administered without complica tion. MIP imaging was performed. A dose lowering technique was utilized adhering to the principles o f ALARA. CT DOSE: 570.84 mGycm FINDINGS: There is a multinodular thyroid goiter with asymmetric enlargement of the left lobe the thyroid. Ther e is mild mass effect on the trachea. There is mild mediastinal and hilar lymphadenopathy. There was no evidence of thoracic aortic dilatation. There is no evidence for central pulmonary embolus. Evaluation of lower lobe pulmonary artery branche s is limited due to respiratory motion artifact. There is a trace right pleural effusion. There are multifocal groundglass pulmonary opacities with a peripheral distribution. These are most p ronounced within the right upper lobe and superior segment of the right lower lobe. The findings are consistent with a multifocal pneumonitis. In addition, there is a solid 11 mm perifissural right lowe r lobe pulmonary nodule. Further evaluation of this nodule is recommended following resolution of the patient's acute inflammatory process. IMPRESSION: 1. Motion compromised study with suboptimal evaluation of the lower lobe pulmonary artery branches 2. Given the technical limitations of the study, no evidence of acute pulmonary embolism 3. Extensive bilateral groundglass pulmonary opacities consistent with a multifocal pneumonia 4. Trace right pleural effusion 5. Mild mediastinal and hilar lymphadenopathy 6. Multinodular thyroid goiter 7. Solid 11 mm perifissural right lower lobe pulmonary nodule. Further evaluation of this nodule is r ecommended to find resolution of patient's acute inflammatory process Please refer to below summary of Fleischner criteria recommendations for follow-up of incidental CT n odules (Rama Romero, Guidelines for management of small pulmonary nodules detected on CT scans: A sta tement from the Fleischner Society, Radiology 237: [phone].) SOLID NODULES Solitary nodule size: <6 mm * low risk patients: no follow-up needed * high risk patients: optional CT at 12 months Solitary nodule size: 6-8 mm * low risk patients: follow-up at 6-12 months, then consider further follow-up at 18-24 months * high risk patients: initial follow-up CT at 6-12 months and then at 18-24 months if no change Solitary nodule size: >8 mm * either low or high risk patients - consider follow-up CT at 3 months, and/or CT-PET, and/or biopsy Multiple nodules size: <6 mm * low risk patients: no routine follow-up * high risk patients: optional CT at 12 months Multiple nodules size: 6-8 mm * low risk patients: follow-up at 3-6 months, then consider further follow-up at 18-24 months * high risk patients: follow-up at 3-6 months, then at 18-24 months if no change Multiple nodules size: >8 mm * low risk patients: follow-up at 3-6 months, then consider further follow-up at 18-24 months * high risk patients: follow-up at 3-6 months, then at 18-24 months if no change Note: newly detected indeterminate nodule in persons 35 years of age or older. * low risk patients: minimal or absent history of smoking and/or other known risk factors * high risk patients: history of smoking or of other known risk factors (e.g. first degree relative with lung cancer, or exposure to asbestos, radon, uranium) * if a nodule up to 8 mm is partly solid or is ground glass further follow-up is required after 24 m onths to exclude possible slow growing adenocarcinoma ([facility]) SUBSOLID NODULES Solitary pure ground-glass nodule * nodule size <6 mm - no CT follow-up required * nodule size >=6 mm - follow-up CT at 6-12 months, then every 2 years until 5 years Solitary part-solid nodule * nodule size <6 mm - no CT follow-up required * nodule size >=6 mm - follow-up CT at 3-6 months. If unchanged, and solid component remains <6 mm, then annual follow-up for 5 years Multiple subsolid nodules * nodule size <6 mm - follow-up CT at 3-6 months, consider further follow-up at 2 and 4 years if sta ble * nodule size >=6 mm - follow-up CT at 3-6 months, subsequent management based on the most suspiciou s nodule(s) ACT 112: Negative or not required by law. Electronically signed by: Justen Franklin M.D. 07/29/2020 4:12 PM
[2020-07-29] MEDS ORDERED: DEXAMETHASONE SOD INJ 10 MG/ML VIAL IV ONE (16:33)
[2020-07-29] MEDS ORDERED: HYDROcodone/HOMATROPINE SYRUP 5MG/1.5MG 5ML UDP PO STA (17:08)
[2020-07-29] MEDS ORDERED: IBUPROFEN 200 MG TAB PO PRN (19:16)
[2020-07-29] MEDS ORDERED: ONDANSETRON INJ 2 MG/ML 2 ML VIAL IV PRN (19:16)
[2020-07-29] MEDS ORDERED: ALBUT/IPRATROP 3MG/0.5MG NEB 3 ML VIAL NEB PRN (19:16)
[2020-07-29] MEDS ORDERED: AZITHROMYCIN 250 MG TAB PO ONE (19:27)
[2020-07-29] MEDS ORDERED: BENZONATATE 100 MG CAPSULE PO PRN (19:30)
[2020-07-29] MEDS ORDERED: REMDESIVIR 200 MG in SODIUM CHLORIDE 0.9% 210 ML IV ONE (19:30)
[2020-07-29] MEDS ORDERED: cefTRIAXone SODIUM 2,000 MG in DEXTROSE 5% 50 ML IV SCH (20:00)
[2020-07-29] MEDS ORDERED: AZITHROMYCIN 250 MG TAB PO SCH (20:00)
[2020-07-29] MEDS: ENOXAPARIN INJ 40 MG/0.4 ML SYR SQ SCH (20:23)
[2020-07-29] MEDS: SODIUM CHLORIDE 0.9% 1000ML 1,000 ML IV SCH (20:23)
[2020-07-29] MEDS: ROSUVASTATIN CALCIUM 10 MG TAB PO SCH (20:24)
--- NOTE | 2020-07-29 20:42 | History & Physical Report ---
Date of Service July 29, 2020 Assessment & Plan (1) COVID-19: Six days from first symptoms. Now with hypoxemia. - Started dexamethasone and remdesivir. - As patient is 6 days from symptom onset, unclear if convalescent plasma is of any benefit. Some concern that plasma can increase thrombosis. Discussed pros:cons of plasma with patient, and we will defer at this time. - Started CAP abx for fairly significant consolidations on CTA chest. However, procalcitonin negative. Will monitor status and consider shorter duration or de- escalation as able. - Supplemental O2 as needed - Supportive care for cough (2) JEREMY (obstructive sleep apnea): Not sure of home settings. - CPAP HS (3) Pulmonary nodule 1 cm or greater in diameter: CTA chest on 07/29/2020 showed solid 11 mm perifissural right lower lobe pulmonary nodule. - Recommend repeat CT chest in 3 months possibly even with PET or biopsy. (4) Anxiety: Not on any med in the chart. - Monitor (5) DVT prophylaxis: Lovenox 40 mg SQ daily Admission and Anticipated Discharge Date Admission Date: July 29, 2020 History of Present Illness Primary Care Provider: Caitlin Delacruz DO 60yo M w/ hx of HLD and allergic reaction who presents with Covid pneumonia. His tested positive, and he started to have symptoms on 07/23/2020. He reports ongoing fevers, cough, some subjective shortness of breath, and lightheadedness. He does not have any diarrhea or symptoms. He has not lost consciousness. In the ED, he was assessed and almost sent home, but then developed hypoxemia and was placed on 4L NC. Allergies Allergy/AdvReac Type Severity Reaction Status Date / Time No Known Drug Allergies Allergy Unknown Unknown Verified 07/29/20 19:26 bee venom protein (honey bee) AdvReac Severe Anaphylaxis Unverified 07/29/20 14:23 Home Medications Medication Instructions Recorded Confirmed Type rosuvastatin 10 mg PO HS 02/19/20 07/29/20 History sildenafil 100 mg PO UD 02/19/20 07/29/20 History epinephrine 0.3 mg IM Q3H PRN #2 ea 02/20/20 07/29/20 Rx acetaminophen [Tylenol Extra 1,000 mg PO Q6H PRN 07/29/20 07/29/20 History Strength] ibuprofen [Advil] 200 mg PO Q6H PRN 07/29/20 07/29/20 History meloxicam 15 mg PO BID 07/29/20 07/29/20 History Past Med/Surg History Medical History Allergy to bee sting JEREMY (obstructive sleep apnea) Family History Other Family history non-contributory Social History Smoking Status: Never smoker Hx Alcohol Use: Yes Alcohol type: beer Hx Substance Use: No Preferred Language: Yemeni Communication Ability: Effective Asset Protection Officer Required: No Beliefs That Will Affect Care: None Current Living Situation: Spouse Other Information That Helps Us Care for You: No Feels Safe at Home: Yes Safety Concerns: Feels Safe At This Time Assistive Devices: CPAP Review of Systems Review of Systems: All systems reviewed & are unremarkable except as noted in HPI & below Physical Exam Constitutional: WD/WN, vitals as above Eyes: EOM intact bilaterally; no conjunctival abnormality ENMT: external ear and nose normal, oropharynx normal Neck: trachea midline, no thyromegaly normal visual inspection Respiratory: + labored breathing; no respiratory distress Auscultation: + crackles; no wheezes Cardiovascular: Rate/Rhythm: regular rhythm and + tachycardic Heart Sounds: normal S1 and normal S2 Vessels: no JVD Extremities: no edema Gastrointestinal (Abdomen): Inspection/Auscultation: abdomen normal to inspection; abdomen not distended Musculoskeletal: no cyanosis or clubbing, extremities motor strength 5/5 Skin: no rashes, warm and dry Neurologic: moves all extremities and awake Psychiatric: Orientation: alert, oriented to person and cooperative Results & Data Results & Data ([facility]) Vital Signs (Past 12 Hours) Vital Signs Temp Pulse Pulse Resp BP BP Pulse Ox 07/29/20 19:00 37.6 C H 101 H 16 139/87 96 07/29/20 18:30 101 H 19 138/81 95 07/29/20 18:00 111 H 18 154/83 H 96 07/29/20 17:30 108 H 12 133/82 96 07/29/20 17:00 107 H 23 155/78 H 97 07/29/20 16:30 107 H 29 H 153/81 H 96 07/29/20 16:23 85 L 07/29/20 16:12 106 H 27 H 94 07/29/20 16:11 109 H 29 H 150/83 H 95 07/29/20 16:05 87 L 07/29/20 15:01 24 96 07/29/20 15:00 24 155/91 H 96 07/29/20 14:34 93 H 20 134/82 91 07/29/20 14:30 87 26 H 93 07/29/20 14:00 93 07/29/20 13:30 92 H 19 90 07/29/20 13:08 37.5 C 95 H 26 H 153/91 H 93 Code Status & VTE Plan VTE Prophylaxis Plan VTE Prophylaxis will be ordered: Yes PG Care Time/CCT Total # of Minutes Spent Total Time Spent with Patient: Total time spent is greater than 50% in coordination of care (as documented) at patient's floor/unit and/or counseling patient: Coding Level of Care Code 10538 Initial Inpt Care Lvl 3 Diagnoses COVID-19 U07.1 JEREMY (obstructive sleep apnea) G47.33 Pulmonary nodule 1 cm or greater in diameter R91.1 Anxiety F41.9 DVT prophylaxis Z29.9
--- NOTE | 2020-07-29 22:35 | Electrocardiogram Report ---
Test Reason : Blood Pressure : / mmHG Vent. Rate : 093 BPM Atrial Rate : 093 BPM P-R Int : 152 ms QRS Dur : 102 ms QT Int : 358 ms P-R-T Axes : 048 008 036 degrees QTc Int : 445 ms Normal sinus rhythm Normal ECG When compared with ECG of 19-FEB-2020 14:07, Nonspecific T wave abnormality, improved in Inferior leads Nonspecific T wave abnormality no longer evident in Anterior leads Confirmed by Wilton Adair ([id number]) on 07/29/2020 10:35:27 PM Referred By: REFERRED SELF Confirmed By:Wilton Adair
[2020-07-29] MEDS: SODIUM CHLORIDE 0.9% 10ML FLUSH IV SCH (23:18)
[2020-07-30 07:58] LABS: BUN Creatinine Ratio 16.9 (10-20); Calcium 8.1 mg/dl (8.5-10.1); Creatinine Clr Calc Pharmacy 138.2 ml/min; Est GFR (African American) 118.5; Est GFR (Non-African American) 102.2; Magnesium 2.1 mg/dl (1.8-2.4); Potassium 4.1 mmol/L (3.5-5.1)
[2020-07-30 08:00] LABS: Hematocrit (blood only) 42.1 % (42-52); Hemoglobin 14.4 g/dL (14.0-18.0); Mean Corpuscular Hgb Conc 34.2 g/dL (32-36); Mean Corpuscular Volume 87.7 fL (80-100); Mean Platelet Volume 11.5 fL (7.4-10.4); Platelet Count 165 K/uL (130-400); RDW Coefficient of Variation 13.3 % (11.5-14.5); RDW Standard Deviation 42.6 fL (36.4-46.3); White Blood Count 2.83 K/uL (4.8-10.8)
[2020-07-30] MEDS: dexAMETHasone 4 MG TAB PO SCH (08:10)
[2020-07-30] MEDS ORDERED: dexAMETHasone 1 MG TAB PO SCH (09:00)
[2020-07-30] MEDS: SODIUM CHLORIDE 0.9% 1000ML 1,000 ML IV SCH ×2 (09:02→23:54)
[2020-07-30] MEDS: ACETAMINOPHEN 325 MG TAB PO PRN (09:05)
[2020-07-30] MEDS ORDERED: GLUCOSE 40% GEL 15 GM TUBE PO PRN (11:00)
[2020-07-30] MEDS ORDERED: CARBOHYDRATES FOR HYPOGLYCEMIA PO PRN (11:00)
[2020-07-30] MEDS ORDERED: GLUCOSE 10 TABS/TUBE PO PRN (11:00)
[2020-07-30] MEDS ORDERED: DEXTROSE 50% 50 ML SYRINGE IV PRN (11:00)
[2020-07-30] MEDS ORDERED: GLUCAGON FOR INJ 1 MG VIAL IM PRN (11:00)
--- NOTE | 2020-07-30 11:48 | Hospitalist Progress Note ---
Date of Service July 30, 2020 Assessment & Plan (1) COVID-19: Six days from first symptoms. Now with hypoxemia. - Started dexamethasone and remdesivir. - As patient is 6 days from symptom onset, unclear if convalescent plasma is of any benefit. Some concern that plasma can increase thrombosis. Discussed pros:cons of plasma with patient, and we will defer at this time. - Started CAP abx for fairly significant consolidations on CTA chest. However, procalcitonin negative. - Will stop ceftriaxone; continue azithromycin x 5 days. - Supplemental O2 as needed - Supportive care for cough - Improving. (2) JEREMY (obstructive sleep apnea): Not sure of home settings. - CPAP HS (3) Pulmonary nodule 1 cm or greater in diameter: CTA chest on 07/29/2020 showed solid 11 mm perifissural right lower lobe pulmonary nodule. - Recommend repeat CT chest in 3 months possibly even with PET or biopsy. (4) Anxiety: Not on any med in the chart. - Monitor (5) DVT prophylaxis: Lovenox 40 mg SQ daily Admission and Anticipated Discharge Date Admission Date: July 29, 2020 Subjective Improved cough. Less shortness of breath today. Feeling better overall. Reports no fevers/chills, chest pain, abdominal pain, nausea, or vomiting. Physical Exam Constitutional: WD/WN, vitals as above Eyes: EOM intact bilaterally; no conjunctival abnormality ENMT: external ear and nose normal, oropharynx normal Neck: trachea midline, no thyromegaly normal visual inspection Respiratory: + labored breathing; no respiratory distress Auscultation: + crackles; no wheezes Cardiovascular: Rate/Rhythm: regular rhythm and + tachycardic Heart Sounds: normal S1 and normal S2 Vessels: no JVD Extremities: no edema Gastrointestinal (Abdomen): Inspection/Auscultation: abdomen normal to inspection; abdomen not distended Musculoskeletal: no cyanosis or clubbing, extremities motor strength 5/5 Skin: no rashes, warm and dry Neurologic: moves all extremities and awake Psychiatric: Orientation: alert, oriented to person and cooperative Results & Data Results & Data ([facility]) Vital Signs (Past 12 Hours) Vital Signs Temp Pulse Pulse Resp BP Pulse Ox 07/30/20 09:08 90 07/30/20 09:07 94 07/30/20 07:22 37.0 C 86 18 132/84 91 07/30/20 03:28 37.0 C 94 H 19 119/77 94 07/30/20 00:00 87 PG Care Time/CCT Total # of Minutes Spent Total Time Spent with Patient: Total time spent is greater than 50% in coordination of care (as documented) at patient's floor/unit and/or counseling patient: Coding Level of Care Code 37729 Subseq Hosp Care Lvl 2 Diagnoses COVID-19 U07.1 JEREMY (obstructive sleep apnea) G47.33 Pulmonary nodule 1 cm or greater in diameter R91.1 Anxiety F41.9 DVT prophylaxis Z29.9
[2020-07-30] MEDS: INSULIN ASPART 100 UNITS/ML 3 ML PEN SC SCH ×3 (12:29→20:42)
[2020-07-30] MEDS ORDERED: AZITHROMYCIN 250 MG TAB PO SCH (18:00)
[2020-07-30] MEDS: REMDESIVIR 100 MG in SODIUM CHLORIDE 0.9% 230 ML IV SCH (19:48)
[2020-07-30] MEDS: ROSUVASTATIN CALCIUM 10 MG TAB PO SCH (19:49)
[2020-07-30] MEDS: ENOXAPARIN INJ 40 MG/0.4 ML SYR SQ SCH (21:08)
[2020-07-30] MEDS: SODIUM CHLORIDE 0.9% 10ML FLUSH IV SCH (21:12)
[2020-07-31 07:18] LABS: Hematocrit (blood only) 40.5 % (42-52); Hemoglobin 13.7 g/dL (14.0-18.0); Mean Corpuscular Hemoglobin 29.3 pg (25-34); Mean Corpuscular Hgb Conc 33.8 g/dL (32-36); Mean Corpuscular Volume 86.7 fL (80-100); Platelet Count 188 K/uL (130-400); RDW Coefficient of Variation 13.3 % (11.5-14.5); RDW Standard Deviation 42.5 fL (36.4-46.3); Red Blood Count 4.67 M/uL (4.7-6.1)
[2020-07-31 07:48] LABS: BUN Creatinine Ratio 19.9 (10-20); Calcium 8.2 mg/dl (8.5-10.1); Creatinine Clr Calc Pharmacy 140.1 ml/min; Est GFR (African American) 119.2; Est GFR (Non-African American) 102.8
[2020-07-31] MEDS: INSULIN ASPART 100 UNITS/ML 3 ML PEN SC SCH ×4 (07:51→20:29)
[2020-07-31] MEDS: ACETAMINOPHEN 325 MG TAB PO PRN (07:51)
[2020-07-31] MEDS: dexAMETHasone 4 MG TAB PO SCH (10:32)
[2020-07-31] MEDS: SODIUM CHLORIDE 0.9% 1000ML 1,000 ML IV SCH (10:49)
--- NOTE | 2020-07-31 15:31 | Hospitalist Progress Note ---
Date of Service July 31, 2020 Assessment & Plan (1) COVID-19: Six days from first symptoms. Now with hypoxemia. - Started dexamethasone and remdesivir. - As patient is 6 days from symptom onset, unclear if convalescent plasma is of any benefit. Some concern that plasma can increase thrombosis. Discussed pros:cons of plasma with patient, and we will defer at this time. - Started CAP abx for fairly significant consolidations on CTA chest. However, procalcitonin negative. - Will stop ceftriaxone; continue azithromycin x 5 days. - Supplemental O2 as needed - Supportive care for cough - Improving. Plan for home tomorrow on O2, steroids, and 2 more days of azithromycin. (2) JEREMY (obstructive sleep apnea): Not sure of home settings. - CPAP HS (3) Pulmonary nodule 1 cm or greater in diameter: CTA chest on 07/29/2020 showed solid 11 mm perifissural right lower lobe pulmonary nodule. - Recommend repeat CT chest in 3 months possibly even with PET or biopsy. (4) Anxiety: Not on any med in the chart. - Monitor (5) DVT prophylaxis: Lovenox 40 mg SQ daily Admission and Anticipated Discharge Date Admission Date: July 29, 2020 Subjective Doing well today. No major concerns. Cough is slowly getting better. Reports no fevers/chills, chest pain, shortness of breath, abdominal pain, nausea, or vomiting. Physical Exam Constitutional: WD/WN, vitals as above Eyes: EOM intact bilaterally; no conjunctival abnormality ENMT: external ear and nose normal, oropharynx normal Neck: trachea midline, no thyromegaly normal visual inspection Respiratory: + labored breathing; no respiratory distress Auscultation: + crackles; no wheezes Cardiovascular: Rate/Rhythm: regular rhythm and + tachycardic Heart Sounds: normal S1 and normal S2 Vessels: no JVD Extremities: no edema Gastrointestinal (Abdomen): Inspection/Auscultation: abdomen normal to inspection; abdomen not distended Musculoskeletal: no cyanosis or clubbing, extremities motor strength 5/5 Skin: no rashes, warm and dry Neurologic: moves all extremities and awake Psychiatric: Orientation: alert, oriented to person and cooperative Results & Data Results & Data ([facility]) Vital Signs (Past 12 Hours) Vital Signs Temp Pulse Pulse Pulse Pulse Pulse Resp 07/31/20 11:05 36.7 C 88 20 07/31/20 10:48 18 07/31/20 10:33 18 07/31/20 09:30 105 H 96 H 95 H 90 07/31/20 07:42 37.1 C 97 H 20 07/31/20 03:57 37 C 92 H 18 Resp Resp Resp Resp BP Pulse Ox Pulse Ox 07/31/20 11:05 122/76 91 07/31/20 10:48 92 07/31/20 10:33 89 L 07/31/20 09:30 18 20 18 18 94 07/31/20 07:42 141/92 H 93 07/31/20 03:57 135/80 90 Pulse Ox Pulse Ox Pulse Ox 07/31/20 11:05 07/31/20 10:48 07/31/20 10:33 07/31/20 09:30 87 L 91 90 07/31/20 07:42 07/31/20 03:57 PG Care Time/CCT Total # of Minutes Spent Total Time Spent with Patient: Total time spent is greater than 50% in coordination of care (as documented) at patient's floor/unit and/or counseling patient: Coding Level of Care Code 99570 Subseq Hosp Care Lvl 2 Diagnoses COVID-19 U07.1 JEREMY (obstructive sleep apnea) G47.33 Pulmonary nodule 1 cm or greater in diameter R91.1 Anxiety F41.9 DVT prophylaxis Z29.9
[2020-07-31] MEDS: REMDESIVIR 100 MG in SODIUM CHLORIDE 0.9% 230 ML IV SCH (20:29)
[2020-07-31] MEDS: ROSUVASTATIN CALCIUM 10 MG TAB PO SCH (20:30)
[2020-07-31] MEDS: ENOXAPARIN INJ 40 MG/0.4 ML SYR SQ SCH (20:30)
[2020-07-31] MEDS: SODIUM CHLORIDE 0.9% 10ML FLUSH IV SCH (21:39)
[2020-08-01] MEDS: ACETAMINOPHEN 325 MG TAB PO PRN (06:34)
[2020-08-01] MEDS: INSULIN ASPART 100 UNITS/ML 3 ML PEN SC SCH ×2 (08:29→12:33)
[2020-08-01] MEDS: dexAMETHasone 4 MG TAB PO SCH (08:32)
--- NOTE | 2020-08-06 07:32 | Discharge Summary ---
Date of Service August 01, 2020 Admission HPI Per Admitting Provider 60yo M w/ hx of HLD and allergic reaction who presents with Covid pneumonia. His tested positive, and he started to have symptoms on 07/23/2020. He reports ongoing fevers, cough, some subjective shortness of breath, and lightheadedness. He does not have any diarrhea or symptoms. He has not lost consciousness. In the ED, he was assessed and almost sent home, but then developed hypoxemia and was placed on 4L NC. Principal Diagnosis COVID 19 infection Discharge Exam Constitutional: WD/WN, vitals as above Eyes: EOM intact bilaterally; no conjunctival abnormality ENMT: external ear and nose normal, oropharynx normal Neck: trachea midline, no thyromegaly normal visual inspection Respiratory: no respiratory distress, no crackles no wheezes Cardiovascular: Rate/Rhythm: regular rhythm and regular rate c Heart Sounds: normal S1 and normal S2 Vessels: no JVD Extremities: no edema Gastrointestinal (Abdomen): Inspection/Auscultation: abdomen normal to inspection; abdomen not distended Musculoskeletal: no cyanosis or clubbing, extremities motor strength 5/5 Skin: no rashes, warm and dry Neurologic: moves all extremities and awake Psychiatric: Orientation: alert, oriented to person and cooperative Discharge Data Allergies Allergy/AdvReac Type Severity Reaction Status Date / Time No Known Drug Allergies Allergy Unknown Unknown Verified 07/29/20 19:26 bee venom protein (honey bee) AdvReac Severe Anaphylaxis Unverified 07/29/20 14:23 Consultations 07/29/20 16:42 ED Decision to Admit Stat Ordered Studies 07/29/20 15:14 CT angio chest PE protocol Stat Hospital Course (1) COVID-19: Six days from first symptoms. Now with hypoxemia. - Started dexamethasone and remdesivir. - As patient is 6 days from symptom onset, unclear if convalescent plasma is of any benefit. Some concern that plasma can increase thrombosis. Discussed pros:cons of plasma with patient, and we will defer at this time. - Started CAP abx for fairly significant consolidations on CTA chest. However, procalcitonin negative. - Will stop ceftriaxone; continue azithromycin x 5 days. - Supplemental O2 as needed - Supportive care for cough - Improving. Home tomorrow on O2, steroids, and 2 more days of azithromycin. (2) JEREMY (obstructive sleep apnea): Not sure of home settings. - CPAP HS (3) Pulmonary nodule 1 cm or greater in diameter: CTA chest on 07/29/2020 showed solid 11 mm perifissural right lower lobe pulmonary nodule. - Recommend repeat CT chest in 3 months possibly even with PET or biopsy. (4) Anxiety: Not on any med in the chart. - Monitor (5) DVT prophylaxis: Lovenox 40 mg SQ daily Total Time Total Time Spent Total Time Spent (In Minutes): 32 Total Time Includes: Examination of the Patient, Discharge Planning and Medication Reconciliation Discharge Plan Discharge Items Patient Disposition: Home - Self-Care Reason For Visit: COVID PNEUMONIA Discharge Diagnosis: Covid pneumonia Condition on Discharge: Fair Activity: Resume your previous activity Non-emergency contact: Primary Care Provider Call non-emergency contact if: your symptoms worsen Follow-up/Referrals: Caitlin Delacruz DO [Primary Care Provider] - Diet: Regular Addtl Attending Provider Instructions: You were admitted to the hospital with Covid pneumonia. We treated you with steroids and remdesivir, and luckily, you are feeling better! This is great! We will send you home to finish off your steroid. The remdesivir is only in IV form, so we will cut that course somewhat short which I do not think will cause any long-term issues. Please take your steroid once per day until it is gone. 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 Please continue the oxygen therapy. You have a home pulse oximeter, and you can use this and see if you need the oxygen. Goal >88% with oxygen If your oxygen level remains above 90% off oxygen, then you can stop using it and have the company return it. Pending Studies at Discharge: No Stand-Alone Forms: My [facility], Smoking Cessation Medications and DC Order Prescriptions: New dexamethasone 6 mg tablet 6 mg PO DAILY Qty: 6 RF: 0 benzonatate [Tessalon Perles] 100 mg Capsule 100 mg PO TID PRN (Reason: cough) Qty: 30 RF: 0 codeine-guaifenesin 10-100 mg/5 mL Liquid 10 ml PO Q6H PRN (Reason: cough) Qty: 120 RF: 0 azithromycin [Zithromax] 250 mg tablet 250 mg PO DAILY Qty: 3 RF: 0 Continued sildenafil 100 mg tablet 100 mg PO UD RF: 0 rosuvastatin 10 mg tablet 10 mg PO HS RF: 0 epinephrine 0.3 mg/0.3 mL auto-injector 0.3 mg IM Q3H PRN (Reason: anaphylaxis) Qty: 2 RF: 6 meloxicam 15 mg tablet 15 mg PO BID RF: 0 acetaminophen [Tylenol Extra Strength] 500 mg Tablet 1,000 mg PO Q6H PRN (Reason: Pain) RF: 0 ibuprofen [Advil] 200 mg Tablet 200 mg PO Q6H PRN (Reason: Pain) RF: 0 Discharge Orders: Discharge Order (Routine); Ordered 08/01/20 Ordered By: Lavon Espino Admission Data Admit Date/Time: 07/29/20 17:26 Attending Provider: Lavon Espino Admit Provider: Joe Pyle Primary Care Provider: Caitlin Delacruz Other Providers: Joe Pyle Other Interventions: Discharge Summary Assessment (RN) Last Done: 08/01/20 15:23 Coding Level of Care Code D/C Day Management >30 mins Diagnoses COVID-19 U07.1 JEREMY (obstructive sleep apnea) G47.33 Pulmonary nodule 1 cm or greater in diameter R91.1 Anxiety F41.9 DVT prophylaxis Z29.9
== END 2020-08-01 16:33 | disposition home or self-care (01) | DRG 177 ==
LOC: ED 13:00 → 2E 17:26 → SUATTDRO 17:26 → 2E 18:42